=== PATIENT | male | born 1965 | race Caucasian/White ===

== ENCOUNTER → 2020-07-23 13:41 | Outpatient (BNVA) | payer OTHER, SELFPAY | PROVIDERS: PCP Internal Medicine; Referring Provider Internal Medicine; Visit Provider Internal Medicine Cardiovascular Disease | DX: Z76.89 Persons encountering health services in other specified circumstances (principal) ==

== ENCOUNTER 2020-12-14 06:55 | Day surgery (SDC) | payer OTHER, SELFPAY ==
[2020-12-07 18:58] VITALS: BMI 31.2
[2020-12-14 07:22] VITALS: BP 126/76; PULSE 63; RESP 16; TEMP 36.5; O2SAT 97; BMI 31.2
[2020-12-14] MEDS: Lactated Ringers 1,000 ML 50 ML IV (07:32)
--- NOTE | 2020-12-14 08:22 | P.CONAN_ITS ---
COUNT INCLUDES THE [facility] Active Problems Active Problems: All Active Problems (Updated 12/07/20 @ 19:16 by Britney Brooks RN) Alcoholism (Acute) Anxiety, generalized (Acute) Impaired fasting blood sugar (Acute) Lipid disorder (Acute) Hypertension, essential (Acute) HTN (hypertension) (Acute) Past Medical History Medical History (Updated 12/07/20 @ 19:16 by Britney Brooks RN) Alcoholism Anxiety, generalized Arthritis HTN (hypertension) Hypertension, essential Impaired fasting blood sugar Lipid disorder Sleep apnea Family History Family History Father Diabetes mellitus HTN (hypertension) Hyperlipidemia Myocardial infarction Mother HTN (hypertension) Hyperlipidemia Maternal Grandfather Parkinsons Maternal Grandmother Rheumatoid arthritis Paternal Grandfather No problems noted. Paternal Grandmother No problems noted. Brother No problems noted. Brother No problems noted. Daughter No problems noted. Surgical History Surgical History (Updated 12/08/20 @ 08:44 by Katie Villareal) H/O colonoscopy History of appendectomy Hx of cardiac catheterization Hx of nasal septoplasty Social History Social History Are you a primary long term care pharmacist to a significant other at home: No Do you presently have visiting nurse or other home services: No Alcohol intake: current Alcohol intake frequency: a few times a week Smoking Status: Never smoker Second Hand Smoke Exposure: No Use of substances other than those prescribed or required for medical reasons: No Advance Directives: Yes Advance Directives on File: Yes Advance Directives Date on File: 12/14/20 Recently lost weight without trying: No Meds Allergies Allergy/AdvReac Type Severity Reaction Status Date / Time No Known Allergies Allergy Verified 07/22/20 08:54 [No Known Allergies*] Active Medications: Current Medications Generic Name Dose Route Start Last Admin Trade Name Freq PRN Reason Stop Dose Admin Lactated Ringer's 1,000 mls @ 50 mls/hr 12/14/20 07:30 12/14/20 07:32 Lr IV 50 mls/hr .Q20H ZAKI Administration Sodium Biphosphate/Sodium Phosphate 133 ml 12/14/20 06:04 Sodium Phosphate,[place]-Dibasic 133 Ml Enema ME ONCE PRN Poor Colonoscopy Prep Results Home Medications Medication Instructions Recorded Confirmed Last Taken Type amlodipine 10 mg tablet 10 mg PO DAILY 07/23/20 12/07/20 Unknown History paroxetine HCl 30 mg tablet 30 mg PO QAM 07/23/20 12/07/20 Unknown History atorvastatin 1 tab PO DAILY 12/07/20 12/07/20 Unknown History Exam Exam Date and Time: December 14, 202022 Height,Weight and Vital Signs: Height 6 ft 3 in Weight 113.398 kg Last Vital Signs Temp 97.7 F 12/14/20 07:22 Pulse 63 12/14/20 07:22 Resp 16 12/14/20 07:22 BP 126/76 12/14/20 07:22 Pulse Ox 97 12/14/20 07:22 Airway Mallampati Class: III TM Dist: >3cm Neck ROM: Full Heart: RRR Lungs: CTA BL Assessment and Plan Assessment Anesthesia Assessment: Anesthesia Plan Discussed and Chart Reviewed Final Anesthetic Review NPO: Yes ASA Class: II Final Preanesthetic Review: No Changes in Pt Med Stat and Consent Obtained/Reviewed Patient Risk: Intermediate Procedure Risk: Intermediate Anesthetic Plan Anesthetic Plan: MAC: Disposition: Standard PACU
[2020-12-14 09:15] VITALS: BP 111/66; PULSE 77; RESP 16; TEMP 36.3; O2SAT 96
--- NOTE | 2020-12-14 09:18 | PM.OP ---
Brief Operative Note Date of Service: 12/14/20 Pre-op diagnosis: Screening Post-op diagnosis: other (Colon polyp) Procedure: Colonoscopy to the cecum and TI with biopsy and removal of polyp Surgeon: Patrick Nguyen Anesthesia: MAC Estimated blood loss (mL): 3.0 Pathology: other (A. Ascending colon polyp) Condition: stable Disposition: PACU
[2020-12-14 09:30] VITALS: BP 114/68; PULSE 62; RESP 17; TEMP 36.3; O2SAT 96
--- NOTE | 2020-12-14 10:02 | OP_ITS ---
SURGEON: Patrick Nguyen MD INDICATIONS: The patient presents for followup of colorectal cancer screening and personal history of tubular adenoma of the colon. Full consent has been obtained from him for this, including risks of bleeding and perforation. PREOPERATIVE DIAGNOSIS: POSTOPERATIVE DIAGNOSIS: PROCEDURE PERFORMED: Colonoscopy to cecum and terminal ileum with biopsy and removal of polyp. ESTIMATED BLOOD LOSS: COMPLICATIONS: ANESTHESIA: Monitored anesthesia care. ASSISTANTS: SPECIMENS: PREOPERATIVE DIAGNOSES: Colorectal cancer screening and personal history of tubular adenoma of the colon. POSTOPERATIVE DIAGNOSES: Colorectal cancer screening and personal history of tubular adenoma of the colon, small colon polyp, diverticulosis, and small internal hemorrhoids. DESCRIPTION OF PROCEDURE: The patient was placed in the left lateral decubitus position. The digital rectal exam revealed no abnormalities. The Olympus video pediatric colonoscope was entered into the rectum and advanced easily to the cecum. Once in the cecum, I did identify normal-appearing cecal pouch with appendiceal orifice and a normal-appearing ileocecal valve. The terminal ileum was cannulated and appeared normal. The scope was withdrawn back in the colon. The entire cecum and ileocecal valve appeared normal. The scope was slowly withdrawn assessing all mucosal surfaces carefully. Preparation was excellent. In the ascending colon, was a flat approximately 3 or 4 mm polyp, which was biopsied and completely removed with cold biopsy forceps. I did not visualize any other polyps, colitis, nor angiodysplasia. There was a mild amount of sigmoid diverticulosis. In the rectum, scope was retroflexed visualizing small internal hemorrhoids, but no other pathology. The rectal mucosa appeared normal. The scope was straightened out and withdrawn from the patient. He tolerated the procedure well and was returned to the recovery area in stable condition. IMPRESSION: 1. Small colon polyp, status post biopsy and removal. 2. Diverticulosis. 3. Internal hemorrhoids. PLAN: The results of the biopsies will be checked. I would recommend a repeat colonoscopy in 5 years for further screening and surveillance. I did advise him to arrange for the liver U/S with elastography that I had recommended to him at his office visit. I told him that I can arrange that for him if his PCP would prefer that.I did tell him to see me within one year for follow up of the fatty liver as well. This has been discussed with his . MD TABITHA Castle/ELEONORA / [id number] MTDD
== END 2020-12-14 09:51 | disposition home or self-care (01) ==
PROVIDERS: PCP Internal Medicine; Visit Provider Internal Medicine
PROC: 0DJD8ZZ Inspection of Lower Intestinal Tract, Via Natural or Artificial Opening Endoscopic (ICD-10-PCS; CPT 45378; principal; 2020-12-14 08:10)
DX: Z12.11 Encounter for screening for malignant neoplasm of colon (principal); Z86.010 Personal history of colon polyps; D12.2 Benign neoplasm of ascending colon; K57.30 Diverticulosis of large intestine without perforation or abscess without bleeding; K64.8 Other hemorrhoids; K76.0 Fatty (change of) liver, not elsewhere classified; R74.8 Abnormal levels of other serum enzymes; I10 Essential (primary) hypertension; F10.20 Alcohol dependence, uncomplicated; G47.33 Obstructive sleep apnea (adult) (pediatric); R73.01 Impaired fasting glucose; Z79.899 Other long term (current) drug therapy; Z99.89 Dependence on other enabling machines and devices
CPT/HCPCS: 45380; 88305

== ENCOUNTER → 2021-10-14 07:31 | Outpatient (BNVA) | payer SELFPAY | PROVIDERS: PCP Internal Medicine; Visit Provider Physician Assistant Medical | DX: Z02.79 Encounter for issue of other medical certificate (principal) ==

== ENCOUNTER → 2021-12-23 15:09 | Outpatient (BNVA) | payer OTHER, SELFPAY | PROVIDERS: PCP Internal Medicine; Visit Provider Internal Medicine Cardiovascular Disease | DX: I10 Essential (primary) hypertension (principal) | CPT/HCPCS: 93005 ==

== ENCOUNTER → 2022-12-26 08:40 | Outpatient (BNVA) | payer OTHER, SELFPAY | PROVIDERS: PCP Internal Medicine; Referring Provider Internal Medicine; Visit Provider Internal Medicine Cardiovascular Disease | DX: I10 Essential (primary) hypertension (principal) | CPT/HCPCS: 93005 ==

== ENCOUNTER 2024-01-30 14:20 | Outpatient (AMB) | payer OTHER, SELFPAY ==
[2024-01-30 14:30] VITALS: BP 120/68; PULSE 69; O2SAT 99; BMI 31.1
--- NOTE | 2024-01-30 14:30 | A.OFFVIS_ITS ---
Vital Signs 01/30/24 14:30 Height 6 ft 3 in Weight 249 lb 1.957 oz BMI 31.1 BP 120/68 Blood Pressure Location Lt brachial Position Sitting Pulse 69 Pulse Source Monitor Pulse Oximetry (%) 99 Oxygen Delivery Method Room Air Intake Visit Reasons: one year f/u with ekg Allergies No Known Allergies [No Known Allergies*] Allergy (Verified 12/26/22 08:55) HPI Comments Details: [id number] male presents for follow-up. He is being followed for hypertension. He reports his readings have been within range and he has been tolerating medications fine. He denies any new changes, shortness of breath, palpitations, swelling, or dizziness, [facility] Medical History Incomplete right bundle branch block (RBBB) determined by electrocardiography Sleep apnea Arthritis Alcoholism Anxiety, generalized Impaired fasting blood sugar Lipid disorder Hypertension, essential HTN (hypertension) Surgical History Hx of cardiac catheterization Hx of nasal septoplasty H/O colonoscopy History of appendectomy Family History Father Diabetes mellitus HTN (hypertension) Hyperlipidemia Myocardial infarction Mother HTN (hypertension) Hyperlipidemia Maternal Grandfather Parkinsons Maternal Grandmother Rheumatoid arthritis Paternal Grandfather No problems noted. Paternal Grandmother No problems noted. Brother No problems noted. Brother No problems noted. Daughter No problems noted. Social History Are you a primary daycare teacher to a significant other at home: No Do you presently have visiting nurse or other home services: No Alcohol intake: current Alcohol intake frequency: a few times a month Patient Tobacco Use Status: Never used Tobacco Second Hand Smoke Exposure: No Advance Directives Date on File: 12/14/20 Review of Systems Const Denies weakness ENT Denies dizziness Card Denies chest pain, Denies chest pain with activity, Denies syncope, Denies rapid heart rate, Denies pedal edema, Denies edema, Denies leg edema, Denies lightheadedness, Denies palpitations, Denies dyspnea, Denies dyspnea on exertion and Denies orthopnea Resp Denies cough, Denies dyspnea and Denies dyspnea on exertion GI Denies hematochezia and Denies change in stool character Musc Denies abnormal gait, Denies muscle cramps, Denies muscle weakness, Denies numbness, Denies radiating pain into limb and Denies tingling Neuro Denies abnormal gait, Denies dizziness, Denies syncope, Denies numbness, Denies tingling and Denies weakness Endo Denies palpitations Physical Exam Vital Signs: Last Vital Signs Pulse 69 01/30/24 14:30 BP 120/68 01/30/24 14:30 Pulse Ox 99 01/30/24 14:30 Oxygen Delivery Method Room Air 01/30/24 14:30 BMI result Body Mass Index 31.1 Const General: healthy appearing and no acute distress Orientation/consciousness: patient oriented x3 HEENT Head: Yes normal to inspection Eyes General: appearance normal, both eyes and all related structures Neck Neck: Yes normal visual inspection Chest Chest palpation & inspection: normal inspection of the chest Resp Effort & Inspection: normal respiratory effort Auscultation: clear to auscultation bilaterally Cardio Jugular venous distension: no JVD Palpation: normal PMI Rate: regular rate Rhythm: regular rhythm Heart sounds: S1 normal heart sound present, S2 normal heart sound present, no click, no gallops, no murmurs and no rubs GI Inspection: Yes normal to inspection Palpation (GI): Soft to palpation Skin General skin exam: no rashes or lesions noted Neuro General: patient oriented x3 Extrem General: Yes normal to inspection Psych Appearance: grossly normal Office Procedures EKG Details: EKG today. Rate Normal Sinus Rhythm. Rightward Gilmer. Incomplete Right Bundle Branch Block. Rate 69 bpm. QRS 100ms. QTc 426 ms. DC 136 ms. [id number], Complete Assessment & Plan Assessment & Plan (1) Hypertension, essential: Code(s): I10 - Essential (primary) hypertension Category: Medical Plan: Blood pressure within range today. Reports they have been overall good at other visits. On amlodipine 10mg and Carvedilol 12.5mg BID. (2) Incomplete right bundle branch block (RBBB) determined by electrocardiography: Code(s): I45.10 - Unspecified right bundle-branch block Category: Medical Plan: Incidental finding. Will check with EKG at visit to assess for conduction delays. At this time no further workup. EKG at next visit. Coding Level of Care Code Est Pt Level 3 (67496) Diagnoses Hypertension, essential I10 Incomplete right bundle branch block (RBBB) determined by electrocardiography I45.10 CPT Codes EKG - CPT: 64513-[id number], Complete ([id number])
== END 2024-01-30 14:53 | disposition home or self-care (01) ==
PROVIDERS: PCP Internal Medicine; Visit Provider Nurse Practitioner
DX: I10 Essential (primary) hypertension (principal); I45.10 Unspecified right bundle-branch block
CPT/HCPCS: 93010; 99213

== ENCOUNTER → 2024-01-30 14:20 | Outpatient (BNVA) | payer OTHER, SELFPAY | PROVIDERS: PCP Internal Medicine; Visit Provider Nurse Practitioner | DX: I10 Essential (primary) hypertension (principal); I45.10 Unspecified right bundle-branch block; Z79.899 Other long term (current) drug therapy | CPT/HCPCS: 93005 ==